=== PATIENT | female | born 1995 ===

== ENCOUNTER 2017-02-17 04:24 | Inpatient (IN) | payer MEDICAID ==
--- NOTE | 2017-02-17 04:36 | OBHP ---
Datetime: 10/15/2016 13:51 IP Adm Impression: , intrauterine IP Chief Complaint Other: dysuria IP Admit Plan: Observation/Evaluation; Discharge home Admit Comment, IP Provider: Patient is a 21yo @ 21.0 wks presenting with urinary burning and UR I symptoms of congestion, cough and runny nose. Patient reported fever Tmax 100.8 at home yesterday, nausea/vomiting, tolerating PO liquids, no vaginal bleeding, no leaking, no abdominal pain, +FM, some discomfort with urination. Patient reports she has had a cold for a few days, second time coming to the hospital, has not taken anything except Tylenol for fever. On exam some congestion appretiated B/ L, but lungs clear, no fever, PU=295/68, HR=95, O2 Kmy=115% on RA, patient reports no probl ems/no medical problems, no surgical problems MLQ=236x TOCO = no ctxns A/P 1. Patient is a @ 21 wks presenting with dysuria and URI symptoms. UA sent and found to have s mall amount of bacteria/mod LE. Possible urine infection. WIll treat with Amoxicillin 500mg PO q 8 hr s x 7 days 2. Reassured patient that she can take OTC medication for cold and plenty of fluids. Patient is af ebrile here, but patient can take Tylenol as prescribed for fever 3. heart rate detected, no other ob complaints, no evidence of contractions or chorio 4. Patient to be discharged, follow up in clinic this week. Labor precautions reviewed Pelvic Type - PN: Adequate Extremities - PN: Normal Abdomen - PN: Normal Back - PN: Normal Breast - PN: Normal Lungs - PN: Normal Heart - PN: Normal Thyroid - PN: Normal Neurologic - PN: Normal HEENT - PN: Normal General - PN: Normal FHR - Baseline A Provider: 140s Contraction Comments Provider: none Vital Signs Provider: Reviewed NICHD Decel Fetus A IP Provider: None Genitourinary Exam: Normal DTRs - PN: Normal
[2017-02-17 06:27] VITALS: BMI 25.6
[2017-02-17] MEDS ORDERED: Lactated Ringer's 1,000 ML IV SCH (06:30)
[2017-02-17 07:06] LABS: BASO # 0.1 K/uL (0.0-0.2); BASO % 0.6 % (0.0-2.0); EOS % 0.3 % (0.0-4.0); HEMATOCRIT 39.7 % (34.0-47.0); LYMPH # 2.3 K/uL (1.0-4.3); LYMPH % 15.7 % (20.0-40.0); MEAN CELL VOLUME 86.4 fl (81.0-99.0); MEAN CORPUSCULAR HEMOGLOBIN 28.2 pg (27.0-31.0); MEAN CORPUSCULAR HGB CONC 32.6 g/dL (33.0-37.0); MONO # 1.1 K/uL (0.0-0.8); MONO % 7.6 % (0.0-10.0); NEUT % 75.8 % (50.0-75.0); RED CELL DISTRIBUTION WIDTH 14.8 % (11.5-14.5); WHITE BLOOD COUNT 14.5 K/uL (4.8-10.8)
[2017-02-17] MEDS ORDERED: Penicillin G Potassium 5 MU in Sodium Chloride 0.9% 50 ML IVPB ONE (07:06)
[2017-02-17] MEDS: Lactated Ringer's 1,000 ML IV SCH ×2 (07:10→08:00)
[2017-02-17] MEDS ORDERED: Penicillin G 5 Million Unit Vial IVPB ONE (07:22)
[2017-02-17] MEDS ORDERED: Bupivacaine HCl 0.25% PF (10 ml) Inj ONE (07:24)
[2017-02-17] MEDS ORDERED: Fentanyl/Bupivacaine HCl 250 ML EPI ONE (07:24)
--- NOTE | 2017-02-17 08:31 | OBADHP ---
Datetime: 02/17/2017 06:49 Admit Comment, IP Provider: IUP at 38+6 presents with complaints of ctx, minimal spotting, +FM. Denies LOF. Ctx began around 02:30. Currently taking macrobid for UTI, day 4 of 7 of abx.Denies urinary sx. Labs: GBS POSITIVE. HIV/RPR neg/neg, GC/CT: neg/neg. OBHx: care at [facility], as per records non compliant with visits pe: 1-2cm / thick / high a: IUP at 38+4wks in early labor p: admit to unit -anesthesia consult : epidural -IVF, CBC, Type and Screen -continous FHT -monitor labor progression Juliana Ramos PGY1 Patient seen and examined with Dr. Ramos OB Hospitalist note: This pt was seen and examined by me. On re-examination 2-3cm and SROM noted MAHNDO FHR - Baseline A Provider: 140s Amniotic Fluid Color, Provider: Clear IP Hx Assessment: The History has been Reviewed and is Current IP Chief Complaint: Uterine contractions NICHD Variability Prov Fetus A: Moderate 6-25bpm Dilatation, Provider: 2-3 Effacement, Provider: thick Station, Provider: high EGA AdmitDate IP: 38.6 IP Adm Impression: Term, intrauterine IP Admit Plan: Admit to unit; Initiate labor augmentation protocol Datetime: 02/17/2017 05:00 Pelvic Type - PN: Adequate Extremities - PN: Normal Abdomen - PN: Normal Back - PN: Normal Breast - PN: Not Done Lungs - PN: Normal Heart - PN: Normal Thyroid - PN: Normal Neurologic - PN: Normal HEENT - PN: Normal General - PN: Normal Presentation-Admit: Vertex Membranes, Provider: Intact Contraction Comments Provider: + Comments, ACOG Physical Exam: ROS: General: no weakness; no fatigue HEENT: no SANDRA; no visual dist CV: no palpitations; no no CP GI: noN/V no diarhea No epigastric pain; non radiating : no F/U/D MS: No joint pain Pool Provider: Negative Vital Signs Provider: Reviewed; Within Normal Limits NICHD Accel Fetus A IP Provider: [id number] FHR Category Provider Fetus A: Category I NICHD Decel Fetus A IP Provider: None Genitourinary Exam: Normal DTRs - PN: Normal Datetime: 10/15/2016 13:51 IP Chief Complaint Other: dysuria
[2017-02-17] MEDS ORDERED: Oxytocin 30 units/LR 500ML 500 ML IV ONE ×2 (09:53→10:09)
[2017-02-17] MEDS ORDERED: Oxycodone/Acetaminophen 5/325 mg Tab PO PRN ×2 (13:44→16:34)
[2017-02-17] MEDS ORDERED: Benzocaine/Menthol SPRAY TOP PRN (13:44)
--- NOTE | 2017-02-17 17:46 | OBDS ---
DELIVERY PERSONNEL Nurse Exercise Planner Certified: ritika Delivery Doctor: Jay Zayas MD Scrub Nurse: ritika Tent Assembler: Cecilia Pettit RN Anesthesiologist: Jay Roque MD/ Jewel Bearing Grinder: ritika Resident: MATERNAL INFORMATION Delivery Anesthesia: Local; Epidural Medications in Delivery: Pitocin 30 mu with 500cc LR Estimated Blood Loss (ml): 200 Placenta Cultured: No Maternal Complications: None RN Comments: Pt tolerated .No acute distress noted.Delivery attended by and Dr.Ferna almodovar(resident).Epidural cath. removed by with intact tip at 1400. Provider Comments: Normal spontaneous vaginal delivery. Patient delivered viable male with Apgars of 9 and 9 at one and 5 minutes respectively. Inf ant delivered via EMIR position. Placenta delivered spontaneously. Lacerations repaired, as above. [place] xvai firm and appropriately hemostatic following delivery. Patient tolerated delivery and repair well. No complications. Estimated blood loss 200 mL LABOR SUMMARY EDC: 02/25/2017 00:00 No. Babies in Womb: 1 Attempted: No Labor Anesthesia: Epidural LABOR INFORMATION Reason for Induction: Not Applicable Onset of Labor: 02/17/2017 02:30 Complete Dilatation: 02/17/2017 12:00 Oxytocin: Augmentation Group B Beta Strep: Positive Antibiotics # of Doses: 2 Antibiotics Time of Last Dose: 1202 Steroids Given: None Reason Steroids Not Administered: Not Applicable MEMBRANES Membranes Rupture Method: Spontaneous Rupture of Membranes: 02/17/2017 06:20 Length of Rupture (hrs): 6.92 Amniotic Fluid Color: Clear Amniotic Fluid Amount: Scant Amniotic Fluid Odor: Normal STAGES OF LABOR Stage 1 hrs: 9 Stage 1 min: 30 Stage 2 hrs: 1 Stage 2 min: 15 Stage 3 hrs: 0 Stage 3 min: 9 Total Time in Labor hrs: 10 Total Time in Labor min: 54 VAGINAL DELIVERY Episiotomy: None Laceration Extension: First Degree Laceration Type: Vaginal Laceration Repair: Yes Laceration Repair Note: Bilateral first-degree vaginal lacerations. Areas infiltrated with 1% lidoca ine. Lacerations repaired with 2. 0 repeat without complication. Patient tolerated repair well Initial Vag Sponge Count: 5 Final Vag Sponge Count: 5 Initial Vag Sharps Count: 3 Final Vag Sharps Count: 3 Sponge Count Correct: Yes Sharps Count Correct: Yes Count Comment: Counted with (resident) BABY A INFORMATION Infant Delivery Date/Time: 02/17/2017 13:15 Method of Delivery: Vaginal Born in Route : No : N/A Forceps: N/A Vacuum Extraction: N/A Shoulder Dystocia : No SHOULDER DYSTOCIA BABY A Infant Delivery Date/Time: 02/17/2017 13:15 PRESENTATION/POSITION BABY A Presentation: Cephalic Breech Presentation: N/A PLACENTA INFORMATION BABY A Placenta Delivery Time : 02/17/2017 13:24 Placenta Method of Delivery: Spontaneous Placenta Status: Delivered SCORES BABY A Heart Rate 1 min: >100 bpm Resp Effort 1 min: Good Cry Reflex Irritability 1 min: Cough or Sneeze or Pulls Away Muscle Tone 1 min: Active Motion Color 1 min: Body [place], Extremities Blue Resuscitation Effort 1 min: Tactile Stimulation SCORE 1 MIN: 9 Heart Rate 5 min: >100 bpm Resp Effort 5 min: Good Cry Reflex Irritability 5 min: Cough or Sneeze or Pulls Away Muscle Tone 5 min: Active Motion Color 5 min: Body [place], Extremities Blue Resuscitation Effort 5 min: Tactile Stimulation SCORE 5 MIN: 9 INFORMATION BABY A Gestational Age at Delivery: 38.6 Gestational Status: Term Infant Outcome : Liveborn Infant Condition : Stable Sex: Male IDENTIFICATION/MEDS BABY A ID Band Number: [id number] ID Band Location: Left Leg; Left Arm Vitamin K Given : Not Given Erythromycin Given: Not Given WEIGHT/LENGTH BABY A Birthweight (gms): 2945 Weight (lb): 6 Weight (oz): 8 CORD INFORMATION BABY A No. Cord Vessels: 3 Nuchal Cord : N/A Nuchal Cord Other: na True Knot: na Cord pH Baby Arterial: na Cord pH Baby Venous: na Cord Blood Taken: Yes Suction: Mouth
[2017-02-17] MEDS: Benzocaine/Menthol SPRAY TOP PRN (18:40)
[2017-02-18 08:10] LABS: BASO # 0.1 K/uL (0.0-0.2); BASO % 0.4 % (0.0-2.0); EOS # 0.1 K/uL (0.0-0.7); EOS % 0.6 % (0.0-4.0); HEMATOCRIT 32.6 % (34.0-47.0); LYMPH # 2.5 K/uL (1.0-4.3); LYMPH % 18.8 % (20.0-40.0); MEAN CELL VOLUME 84.9 fl (81.0-99.0); MEAN CORPUSCULAR HEMOGLOBIN 28.9 pg (27.0-31.0); MEAN PLATELET VOLUME 8.4 fl (7.2-11.7); MONO # 1.3 K/uL (0.0-0.8); MONO % 9.4 % (0.0-10.0); NEUT # 9.5 K/uL (1.8-7.0); NEUT % 70.8 % (50.0-75.0); RED CELL DISTRIBUTION WIDTH 14.8 % (11.5-14.5); WHITE BLOOD COUNT 13.3 K/uL (4.8-10.8)
[2017-02-18] MEDS: Benzocaine/Menthol SPRAY TOP PRN (09:04)
[2017-02-18] MEDS ORDERED: Multivitamin With Minerals Tab PO SCH (09:45)
--- NOTE | 2017-02-19 10:53 | OBDCSUM ---
Datetime: 02/19/2017 07:26 Discharged to, Provider: Home Follow up at, Provider: Elvin Zavala Disch Instr Activity: Normal activity Disch Instr Diet: Regular Discharge Instructions, Provider: Routine instructions given Discharge Diagnosis, Provider: Term Delivered Discharge Time: 02/19/2017 11:00 Follow up in weeks, Provider: 4-6 weeks Disch Referrals: None Disch Activity Restrictions: No sexual activity; Nothing in vagina - [place], tampons, douche Discharge Comment, Provider: with bilateral 1st degree vaginal laceration rx for motrin given OBH ADDENDUM: Pt seen _ examined by me. Agree w/ above assessment and plan. Perineal care d/w pt. Continue PNV. Contraception after Delivery: Undecided
--- NOTE | 2017-02-19 10:53 | OBPPN ---
Datetime: 02/19/2017 07:24 PP Pain Prov: Within normal limits PP Nausea Prov: Denies PP Flatus Prov: Yes PP BM Prov: Yes PP Breasts Prov: Normal PP Heart Prov: Normal PP Lungs Prov: Normal PP Abdomen/Uterus Prov: Normal PP Lochia Prov: Normal PP Extremities Prov: Normal PP Progress Prov: Normal PP Comments Phys Exam Prov: lochia < menses PP Impression Prov: Normal progression PP Plan Prov: Discharge PP Progress Note Prov: PPD#2 s:Patient feels well. Tolerating regular diet. Passing flatus. Ambulating. Pt woud like circumcisi on for baby. She state she is ready to go home. o:as above a: PPD#2 s/p with bilateral first degree lacerations doing well p: pain control -encouraged breast feeding -encouraged ambulation -discharge home Juliana Ramos PGY1 OBH ADDENDUM: Pt seen _ examined by me. Agree w/ above assessment and plan. Perineal care d/w pt. Continue PNV. Circumcision d/w pt. Advised is an elective procedure. Risks benefits reviewed. Pt states she wi shes to consider this further. Vital Signs Provider PP: Reviewed; Within Normal Limits Datetime: 02/18/2017 07:55 PP C/S Incision Prov: Not Applicable IP PP Procedures: None
== END 2017-02-19 17:43 | disposition home or self-care (01) | DRG 372 ==
LOC: H.EROB2 04:24 → H.L&D 06:27 → H.OB/GYN 16:32
PROVIDERS: ADMIT Obstetrics & Gynecology; ATTEND Obstetrics & Gynecology
PROC: 10E0XZZ Delivery of Products of Conception, External Approach (ICD-10-PCS; principal; 2017-02-17)
PROC: 0HQ9XZZ Repair Perineum Skin, External Approach (ICD-10-PCS; 2017-02-17)
PROC: 4A1HXCZ Monitoring of Products of Conception, Cardiac Rate, External Approach (ICD-10-PCS; 2017-02-17)
DX: O75.3 Other infection during labor (principal); N39.0 Urinary tract infection, site not specified; O70.0 First degree perineal laceration during delivery; Z37.0 Single live birth; Z3A.38 38 weeks gestation of pregnancy; Z91.19 Patient's noncompliance with other medical treatment and regimen

== ENCOUNTER 2018-12-06 02:06 | Inpatient (IN) | payer MEDICAID ==
[2018-12-06 02:27] VITALS: BMI 27.4
[2018-12-06] MEDS ORDERED: Lactated Ringer's 1,000 ML IV ONE (02:49)
[2018-12-06] MEDS ORDERED: OXYTOCIN/0.9 % NS 20 UNIT/1,000 ML BAG IV ONE (02:52)
[2018-12-06] MEDS ORDERED: Oxytocin 30 UNIT 30 UNITS/500 ML BAG IV ONE (02:52)
[2018-12-06] MEDS ORDERED: Lactated Ringer's 1,000 ML IV SCH (03:00)
[2018-12-06] MEDS ORDERED: Penicillin G 5 Million Unit Vial IVPB ONE (03:06)
[2018-12-06] MEDS ORDERED: Fentanyl/Bupivacaine HCl 250 ML EPI ONE (03:17)
[2018-12-06 03:22] LABS: BASO % 0.1 % (0.0-2.0); EOS % 0.3 % (0.0-4.0); HEMOGLOBIN 12.2 g/dL (12.0-16.0); LYMPH # 1.2 K/uL (1.0-4.3); LYMPH % 9.9 % (20.0-40.0); MEAN CELL VOLUME 83.6 fl (81.0-99.0); MEAN CORPUSCULAR HEMOGLOBIN 27.8 pg (27.0-31.0); MEAN CORPUSCULAR HGB CONC 33.2 g/dL (33.0-37.0); MEAN PLATELET VOLUME 8.7 fl (7.2-11.7); MONO # 0.8 K/uL (0.0-0.8); MONO % 6.3 % (0.0-10.0); NEUT # 10.4 K/uL (1.8-7.0); NEUT % 83.4 % (50.0-75.0); PLATELET COUNT 252 K/uL (130-400); RBC 4.38 Mil/uL (3.80-5.20); RED CELL DISTRIBUTION WIDTH 14.2 % (11.5-14.5); WHITE BLOOD COUNT 12.4 K/uL (4.8-10.8)
[2018-12-06 05:03] VITALS: RESP 20; O2SAT 100
[2018-12-06] MEDS ORDERED: Benzocaine/Menthol SPRAY TOP PRN ×2 (06:09→07:49)
[2018-12-06 06:57] LABS: BANDS 2 % (0-2); LYMPHOCYTE 10 % (20-50); MONOCYTE 9 % (0-10); NEUTROPHIL 79 % (42-75); PLATELET ESTIMATE NORMAL (NORMAL); TOTAL CELLS COUNTED 100
[2018-12-06 06:58] LABS: ACANTHOCYTES SLIGHT; HYPOCHROMIC SLIGHT; TARGET CELLS SLIGHT
--- NOTE | 2018-12-06 12:39 | OBDS ---
DELIVERY PERSONNEL Delivery Doctor: Jay Zayas MD Manager Of Internal: Cheryl Mcneal RN Anesthetist: Bianca Carmona Resident: Devyn Ibarra MATERNAL INFORMATION Delivery Anesthesia: Epidural Medications in Delivery: Pitocin Estimated Blood Loss (ml): 200 Placenta Cultured: No Maternal Complications: None Provider Comments: Normal spontaneous vaginal delivery of live female position YANETH over intact perin eum without epidural anesthesia. Infant was placed on maternal abdomen and delayed cord clamping were performed. No meconium or nuchal cord. short umbilical cord. Spontaneous delivery of placenta with 3 -vessel cord. EBL 200 cc. 9/9. Weight 3250 gm. LABOR SUMMARY EDC: 12/10/2018 00:00 No. Babies in Womb: 1 Attempted: No Labor Anesthesia: Epidural LABOR INFORMATION Reason for Induction: Not Applicable Onset of Labor: 12/05/2018 21:00 Complete Dilatation: 12/06/2018 05:38 Oxytocin: N/A Group B Beta Strep: Positive Antibiotics # of Doses: 1 Antibiotics Time of Last Dose: 0313 Steroids Given: None Reason Steroids Not Administered: Not Applicable MEMBRANES Membranes Rupture Method: Spontaneous Rupture of Membranes: 12/06/2018 05:36 Length of Rupture (hrs): 0.47 Amniotic Fluid Color: Clear Amniotic Fluid Amount: Small STAGES OF LABOR Stage 1 hrs: 8 Stage 1 min: 38 Stage 2 hrs: 0 Stage 2 min: 26 Stage 3 hrs: 0 Stage 3 min: 6 Total Time in Labor hrs: 9 Total Time in Labor min: 10 VAGINAL DELIVERY Episiotomy: None Laceration Extension: N/A Laceration Type: None Laceration Repair: Not Applicable Initial Vag Sponge Count: 15 Final Vag Sponge Count: 15 Initial Vag Sharps Count: 0 Final Vag Sharps Count: 0 Sponge Count Correct: Yes Sharps Count Correct: Yes Count Comment: count correct BABY A INFORMATION Delivery Date/Time: 12/06/2018 06:04 Method of Delivery: Vaginal Born in Route : No : N/A Forceps: N/A Vacuum Extraction: N/A Shoulder Dystocia : No SHOULDER DYSTOCIA BABY A Delivery Date/Time: 12/06/2018 06:04 PRESENTATION/POSITION BABY A Presentation: Cephalic PLACENTA INFORMATION BABY A Placenta Delivery Time : 12/06/2018 06:10 Placenta Method of Delivery: Spontaneous Placenta Status: Delivered SCORES BABY A Heart Rate 1 min: >100 bpm Resp Effort 1 min: Good Cry Reflex Irritability 1 min: Cough or Sneeze or Pulls Away Muscle Tone 1 min: Active Motion Color 1 min: Body [place], Extremities Blue Resuscitation Effort 1 min: Tactile Stimulation SCORE 1 MIN: 9 Heart Rate 5 min: >100 bpm Resp Effort 5 min: Good Cry Reflex Irritability 5 min: Cough or Sneeze or Pulls Away Muscle Tone 5 min: Active Motion Color 5 min: Body [place], Extremities Blue Resuscitation Effort 5 min: N/A SCORE 5 MIN: 9 INFORMATION BABY A Gestational Age at Delivery: 39.3 Gestational Status: Term Infant Outcome : Liveborn Infant Condition : Stable Infant Sex: Female IDENTIFICATION/MEDS BABY A ID Band Number: [id number] ID Band Location: Left Leg; Left Arm WEIGHT/LENGTH BABY A Infant Birthweight (gms): 3250 Weight (lb): 7 Infant Weight (oz): 3 CORD INFORMATION BABY A No. Cord Vessels: 3 Nuchal Cord : N/A Cord Blood Taken: Yes Suction: None ASSESSMENT BABY A Infant Complications: None Physical Findings at Delivery: Within Normal Limits Respirations: Appears Normal Shoe Repairer Apprentice/ALS Called : No Infant Care By: Rm Transferred To: Remains with Mother
--- NOTE | 2018-12-06 12:39 | OBADHP ---
Datetime: 12/06/2018 03:04 Admit Comment, IP Provider: 23 y/o, , 39.3 wks based on LMP presents to [facility] with CTx. CTx apre painful, regular strated 21:00 hr last night Q5 mins. Denies any LOF or VB. Endorses good FM. Denies F/C/N/V/D, CP or SOB. care: Elvin Zavala, [facility] 8.71 on last US 11/20/18 GBS+, HIV Neg, RPR Neg, PPD neg, GC/C neg, Rubella Immune, HbsAg Neg, O+, ab neg OBHx: 1 @ 38.6 wks 02/2017 PMHx: Denies PSHx: Denies Allergies: NKDA Med: PNVs F/H: Noncontributory SOcial Hx: Denies ETOH/smoking/Drugs PE: Gen: In pain/distress during CTx Chest: RRR, S1S2 present Lungs: CTAB ABdomen: Gravid, NT, BS+ Ext: No pedal edema SVE: 4 cm/80%/-2 A/P: 23 y/o, , 39.3 wks based on LMP presents to [facility] with CTx. EFM and toco monitoring NST reactive, Regular CTx Q 3-5 mins GBS+, HIV Neg, RPR Neg, PPD neg, GC/C neg, Rubella Immune, HbsAg Neg, O+, ab neg Admit to unit, Labor protocol LR 999 and 125 ml/hr Anesthesia consult for epidural CBC, T_S, HIV, RPR Monitor for cervical change Case discussed with Attending Devyn Ibarra, PGY1 Pelvic Type - PN: Not Done Extremities - PN: Normal Abdomen - PN: Normal Back - PN: Normal Breast - PN: Not Done Lungs - PN: Normal Heart - PN: Normal Thyroid - PN: Not Done Neurologic - PN: Normal HEENT - PN: Normal General - PN: Normal Presentation-Admit: Vertex FHR - Baseline A Provider: 135 Membranes, Provider: Intact IP Hx Assessment: The History has been Reviewed and is Current Vital Signs Provider: Reviewed; Within Normal Limits IP Chief Complaint: Uterine contractions NICHD Variability Prov Fetus A: Moderate 6-25bpm NICHD Accel Fetus A IP Provider: [id number] FHR Category Provider Fetus A: Category I NICHD Decel Fetus A IP Provider: None Dilatation, Provider: 4 Effacement, Provider: 80 Station, Provider: -2 Genitourinary Exam: Normal DTRs - PN: Not Done EGA AdmitDate IP: 39.3 IP Adm Impression: Term, intrauterine IP Admit Plan: Admit to unit; Initiate labor protocol Datetime: 12/06/2018 02:55 Contraction Comments Provider: Regular Q 3-5 mins Comments, ACOG Physical Exam: SVE: 4/80%/-2
--- NOTE | 2018-12-06 12:40 | OBDS ---
DELIVERY PERSONNEL Delivery Doctor: Jay Zayas MD Clay Burner: Cheryl Mcneal RN Anesthetist: Bianca Carmona Resident: Devyn Ibarra MATERNAL INFORMATION Delivery Anesthesia: Epidural Medications in Delivery: Pitocin Estimated Blood Loss (ml): 200 Placenta Cultured: No Maternal Complications: None Provider Comments: Normal spontaneous vaginal delivery of live female position YANETH over intact perin eum without epidural anesthesia. Infant was placed on maternal abdomen and delayed cord clamping were performed. No meconium or nuchal cord. short umbilical cord. Spontaneous delivery of placenta with 3 -vessel cord. EBL 200 cc. 9/9. Weight 3250 gm. LABOR SUMMARY EDC: 12/10/2018 00:00 No. Babies in Womb: 1 Attempted: No Labor Anesthesia: Epidural LABOR INFORMATION Reason for Induction: Not Applicable Onset of Labor: 12/05/2018 21:00 Complete Dilatation: 12/06/2018 05:38 Oxytocin: N/A Group B Beta Strep: Positive Antibiotics # of Doses: 1 Antibiotics Time of Last Dose: 0313 Steroids Given: None Reason Steroids Not Administered: Not Applicable MEMBRANES Membranes Rupture Method: Spontaneous Rupture of Membranes: 12/06/2018 05:36 Length of Rupture (hrs): 0.47 Amniotic Fluid Color: Clear Amniotic Fluid Amount: Small STAGES OF LABOR Stage 1 hrs: 8 Stage 1 min: 38 Stage 2 hrs: 0 Stage 2 min: 26 Stage 3 hrs: 0 Stage 3 min: 6 Total Time in Labor hrs: 9 Total Time in Labor min: 10 VAGINAL DELIVERY Episiotomy: None Laceration Extension: N/A Laceration Type: None Laceration Repair: Not Applicable Initial Vag Sponge Count: 15 Final Vag Sponge Count: 15 Initial Vag Sharps Count: 0 Final Vag Sharps Count: 0 Sponge Count Correct: Yes Sharps Count Correct: Yes Count Comment: count correct BABY A INFORMATION Delivery Date/Time: 12/06/2018 06:04 Method of Delivery: Vaginal Method of Delivery: Vaginal Born in Route : No : N/A Forceps: N/A Vacuum Extraction: N/A Shoulder Dystocia : No SHOULDER DYSTOCIA BABY A Infant Delivery Date/Time: 12/06/2018 06:04 PRESENTATION/POSITION BABY A Presentation: Cephalic PLACENTA INFORMATION BABY A Placenta Delivery Time : 12/06/2018 06:10 Placenta Method of Delivery: Spontaneous Placenta Status: Delivered SCORES BABY A Heart Rate 1 min: >100 bpm Resp Effort 1 min: Good Cry Reflex Irritability 1 min: Cough or Sneeze or Pulls Away Muscle Tone 1 min: Active Motion Color 1 min: Body [place], Extremities Blue Resuscitation Effort 1 min: Tactile Stimulation SCORE 1 MIN: 9 Heart Rate 5 min: >100 bpm Resp Effort 5 min: Good Cry Reflex Irritability 5 min: Cough or Sneeze or Pulls Away Muscle Tone 5 min: Active Motion Color 5 min: Body [place], Extremities Blue Resuscitation Effort 5 min: N/A SCORE 5 MIN: 9 INFANT INFORMATION BABY A Gestational Age at Delivery: 39.3 Gestational Status: Term Infant Outcome : Liveborn Infant Condition : Stable Sex: Female IDENTIFICATION/MEDS BABY A ID Band Number: [id number] ID Band Location: Left Leg; Left Arm WEIGHT/LENGTH BABY A Birthweight (gms): 3250 Infant Weight (lb): 7 Infant Weight (oz): 3 CORD INFORMATION BABY A No. Cord Vessels: 3 Nuchal Cord : N/A Cord Blood Taken: Yes Suction: None ASSESSMENT BABY A Complications: None Physical Findings at Delivery: Within Normal Limits Respirations: Appears Normal Food Counselor/ALS Called : No Care By: Rm Transferred To: Remains with Mother
[2018-12-07 06:20] LABS: BASO % 0.3 % (0.0-2.0); EOS # 0.2 K/uL (0.0-0.7); EOS % 1.9 % (0.0-4.0); HEMOGLOBIN 11.8 g/dL (12.0-16.0); LYMPH # 2.7 K/uL (1.0-4.3); LYMPH % 22.5 % (20.0-40.0); MEAN CELL VOLUME 84.8 fl (81.0-99.0); MEAN CORPUSCULAR HEMOGLOBIN 28.4 pg (27.0-31.0); MEAN CORPUSCULAR HGB CONC 33.5 g/dL (33.0-37.0); MEAN PLATELET VOLUME 8.5 fl (7.2-11.7); MONO # 1.3 K/uL (0.0-0.8); MONO % 10.5 % (0.0-10.0); NEUT # 7.8 K/uL (1.8-7.0); NEUT % 64.8 % (50.0-75.0); NRBC % 0.1 % (0.0-0.0); RBC 4.14 Mil/uL (3.80-5.20); RED CELL DISTRIBUTION WIDTH 14.4 % (11.5-14.5); WHITE BLOOD COUNT 12.1 K/uL (4.8-10.8)
--- NOTE | 2018-12-08 10:45 | OBPPN ---
Datetime: 12/08/2018 08:16 PP Pain Prov: Within normal limits PP Nausea Prov: Denies PP Flatus Prov: Yes PP BM Prov: Yes PP Breasts Prov: Not Done PP Heart Prov: Normal PP Lungs Prov: Normal PP Abdomen/Uterus Prov: Normal PP Lochia Prov: Not Done PP Vulva/Perineum Prov: Not Done PP CVA Tenderness Prov: Normal PP Extremities Prov: Normal PP C/S Incision Prov: Not Applicable PP Progress Prov: Normal PP Impression Prov: Normal progression PP Plan Prov: Continue present management PP Progress Note Prov: S: 23 yo f S/P on 12/06/18, PPD2. Pt was seen and examined at beds josue this AM. No overnight events. Pain is minimal. Ambulating and tolerating PO diet without difficul ty. Breast and bottle feed. Lochia Like menses. +Flatus/+BM. Denies fever/chills, diarrhea, nausea/v omiting, chest pain, dyspnea, and dizziness. O: VS: Stable overnight GEN: NAD Cardio: S1S2, no murmurs Lungs: clear breath sounds b/l, no wheezing Abdomen: BS+, appropriate tenderness to palpation. Uterus is firm and at the level of the umbilic us. EXT: No edema, calves nontender NEURO/PSYCH: AAOx3, no grossly focal deficits, preserved affect and mood. H/H: 12.2/36.6 11.8/35.1 Assessment/Plan: 23 yo f S/P on 12/06/18, PPD2. Pt remains afebrile, tolerating pain. Re g diet. -d/c today, 12/08/18 -Encourage and ambulating - Rx for Ibuprofen 600mg q6 for pain and Senokot -Will follow up with [facility] - Declined Tdap and flu, will get it from [facility] - will have placement of Nexplanon at [facility]. Case discussed with Dr Stewart. -Devyn Ibarra PGY1 Attending Note: Patient was discussed with resident and I agree with the above. Vital Signs Provider PP: Reviewed; Within Normal Limits
[2018-12-08 16:07] VITALS: BP 121/71; PULSE 69; TEMP 98
--- NOTE | 2018-12-09 10:07 | OBDCSUM ---
Datetime: 12/08/2018 08:18 Discharged to, Provider: Home Follow up at, Provider: Elvin Giang Instr Activity: Normal activity; May Shower Disch Instr Diet: Regular Discharge Instructions, Provider: Routine instructions given Discharge Diagnosis, Provider: Term Delivered Discharge Time: 12/08/2018 10:07 Follow up in weeks, Provider: 4-6 weeks Disch Referrals: None Discharge Instruct Comment, Prov: NEXPLANON implant at [facility] Contraception discussed, Prov: Yes Disch Activity Restrictions: No exercising; No sexual activity; Nothing in vagina - [place], [place] Discharge Comment, Provider: Discharge summary EGA: 39+3 weeks Diagnosis: 23 yo f S/P on 12/06/18 @ 06:04. She delivered a baby female, Wt 3250g, 9/9 Summary: Patient is PPD2 with normal progression. No complications during post- period. Loch ia like menses. Pt was able to pass gas and had BM, She is tolerating regular diet, Fundus firm below umbilicus, able to ambulate w/o any difficulties, voiding well, denies fever, chills, SANDRA, SOB, N/V, calf pain. CBC post-: 11.8/35.1 Discharge Instructions: 1. Continue and increase 2. PNV 1 tab PO daily 3. Ibuprofen 600mg 1 tab PO Q6h prn for mild-mod pain and Senokot for constipation 4. Pt will have Nexplanon placed in [facility] 5. Instructions given to patient: If excessive bleeding, return of pain or increasing pain and/or fever without relief from medication, go to ED 6. PT was urged if feeling sad, mood swing, depression, neglect of baby, suicidal thoughts, homici leah thought should go to ED or call 911 for help 7. Pt should go to her Primary care doctor if she has difficulty with 8. F/U post- visit in 4-6 weeks at [facility]. She reports she has an appointment s et up for 4 weeks from now. Devyn Ibarra MD PGY1
--- NOTE | 2018-12-09 10:16 | OBPPN ---
Datetime: 12/07/2018 06:24 PP Pain Prov: Within normal limits PP Nausea Prov: Denies PP Flatus Prov: Yes PP BM Prov: Yes PP Breasts Prov: Normal PP Heart Prov: Normal PP Lungs Prov: Normal PP Abdomen/Uterus Prov: Normal PP Lochia Prov: Normal PP Vulva/Perineum Prov: Not Done PP CVA Tenderness Prov: Not Done PP Extremities Prov: Normal PP C/S Incision Prov: Not Applicable PP Progress Prov: Normal PP Impression Prov: Normal progression PP Plan Prov: Continue present management PP Progress Note Prov: S: 23 yo f S/P on 12/06/18, PPD1. Pt was seen and examined at beds josue this AM. No overnight events. Pain is minimal. Ambulating and tolerating PO diet without difficul ty. Breast and bottle feed. Lochia>menses. +Flatus/+BM. Denies fever/chills, diarrhea, nausea/vomiti ng, chest pain, dyspnea, and dizziness. O: VS: Stable overnight GEN: NAD Cardio: S1S2, no murmurs Lungs: clear breath sounds b/l, no wheezing Abdomen: BS+, appropriate tenderness to palpation. Uterus is firm and at the level of the umbilic us. EXT: No edema, calves nontender NEURO/PSYCH: AAOx3, no grossly focal deficits, preserved affect and mood. H/H: 12.2/36.6 ([facility] pending) Assessment/Plan: 23 yo f S/P on 12/06/18, PPD1. Pt remains afebrile, tolerating pain. Re g diet. -Anticipating d/c on 12/08 -Continue with current management -Encourage and ambulating -Ibuprofen 600mg q6 for pain -Will follow up with [facility] Case discussed with Dr Stewart. -Juanita Bradley PGY1 IP PP Procedures: None Vital Signs Provider PP: Reviewed; Within Normal Limits
== END 2018-12-08 12:00 | disposition home or self-care (01) | DRG 560 ==
LOC: H.EROB2 02:06 → H.L&D 02:52 → H.OB/GYN 08:09
PROVIDERS: ADMIT Obstetrics & Gynecology; ATTEND Obstetrics & Gynecology
PROC: 10E0XZZ Delivery of Products of Conception, External Approach (ICD-10-PCS; principal; 2018-12-06)
PROC: 4A1HXCZ Monitoring of Products of Conception, Cardiac Rate, External Approach (ICD-10-PCS; 2018-12-06)
DX: O80 Encounter for full-term uncomplicated delivery (principal); Z37.0 Single live birth; Z3A.39 39 weeks gestation of pregnancy